=== PATIENT | female | born 1960 | race Caucasian/White ===

== ENCOUNTER 2017-02-11 10:04 | Inpatient (IN) | payer OTHER ==
[2017-02-11 10:23] VITALS: BMI 27.6
--- NOTE | 2017-02-11 12:42 | HP ---
COWS - Scale Resting Pulse: 1= [place] 81-100 Sweatin=Flushed/Facial Moisture Restless Observation: 3= Extraneous Movement Pupil Size: 2= Moderately Dilated Bone or Joint Aches: 2= Severe Diffuse Aches Runny Nose/ Eye Tearin= Runny Nose/Eyes GI Upset > 30mins: 3= Vomiting/Diarrhea Tremor Observation: 2= Slight Tremor Visible Yawning Observation: 2= >3x During Session Anxiety or Irritability: 2=Irritable/Anxious Goose Flesh Skin: 0=Smooth Skin COWS Score: 21 CIWA Score - CIWA Score Nausea/Vomitin Muscle Tremors: 3 Anxiety: 3 Agitation: 3 Paroxysmal Sweats: 2 Orientation: 0-Oriented Tacttile Disturbances: 2-Mild Itch/Numbness/Burn Auditory Disturbances: 2-Mild Harshness/Frighten Visual Disturbances: 2-Mild Sensitivity Headache: 2-Mild CIWA-Ar Total Score: 22 Admission ROS BHS - HPI Chief Complaint: I NEED HELP TO STOP USING HEROIN,ALCOHOL,COCAINE,MARIJUANA Allergies/Adverse Reactions: Allergies Allergy/AdvReac Type Severity Reaction Status Date / Time Penicillins Allergy Severe Hives Verified 02/11/17 12:14 History of Present Illness: THIS 56 YEARS OLD FEMALE WITH HEROIN,ALCOHOL DEPENDENCE,XANAX,COCAINE MARIJUANA DEPENDENCE,WITHDRAWAL SYMPTOM, LAST DETOX CORNER STONE 2016 FELL 1 MONTH AGO DEPRESSION,PTSD HEPATITIS C SEIZURE LAST 6 MONTHS HYPERCHOLESTEROLEMIA SCOLIOSIS HISTORY OF DISLOCATION OF LEFT ANKLE LONGEST PERIOD OF SOBRIETY 11 YEARS Exam Limitations: No Limitations - Ebola screening Have you traveled outside of the country in the last 21 days: No Have you had contact with anyone from an Ebola affected area: No Have you been sick,other than usual withdrawal symptoms: No Do you have a fever: No - Review of Systems Constitutional: Diaphoresis, Loss of Appetite, Malaise, Night Sweats, Changes in sleep, Unexplained wgt Loss EENT: reports: Tearing, Nose Congestion Respiratory: reports: No Symptoms reported Cardiac: reports: Palpitations GI: reports: Abdominal Distended, Diarrhea, Nausea, Poor Appetite, Abdominal cramping : reports: No Symptoms Reported Musculoskeletal: reports: Back Pain, Joint Pain, Muscle Pain, Joint Stiffness Integumentary: reports: Dryness Neuro: reports: Headache, Tremors Endocrine: reports: No Symptoms Reported Hematology: reports: No Symptoms Reported Psychiatric: reports: No Sypmtoms Reported, Judgement Intact, Mood/Affect Appropiate, other (DEPRESSION,PTSD) Patient History - Patient Medical History Hx Anemia: No Hx Asthma: No Hx Chronic Obstructive Pulmonary Disease (COPD): No Hx Cancer: No Hx Cardiac Disorders: No Hx Hypertension: No Hx Hypercholesterolemia: No Hx Pacemaker: No HX Cerebrovascular Accident: No Hx Seizures: Yes (drug related seizures last 6 months ago.) Hx Dementia: No Hx Diabetes: No Hx Gastrointestinal Disorders: No Hx Liver Disease: No Hx Genitourinary Disorders: No Hx Sexually Transmitted Disorders: No Hx Renal Disease (ESRD): No Hx Thyroid Disease: No Hx Human Immunodeficiency Virus (HIV): No (LAST 2016 NEGATIVE) Hx Hepatitis C: Yes ([employer]) Hx Depression: Yes Hx Suicide Attempt: Yes (tried to overdose in 2014) Hx Bipolar Disorder: No Hx Schizophrenia: No Other Medical History: NO SUICIDAL,NO HOMICIDAL - Patient Surgical History Past Surgical History: Yes Hx Section: Yes (x2) Other Surgical History: removal of benign R ovarian cyst 1988 - PPD History Previous Implant?: Yes Documented Results: Negative w/o proof Implanted On Prior R Admission?: No PPD to be Administered?: Yes - Reproductive History Patient is a Female of Child Bearing Age (11 -55 yrs old): Yes Patient : No - Smoking Cessation Smoking history: Current every day smoker Have you smoked in the past 12 months: Yes Aproximately how many cigarettes per day: 5 Hx Chewing Tobacco Use: No Initiated information on smoking cessation: Yes 'Breaking Loose' booklet given: 02/11/17 - Substance & Tx. History Hx Alcohol Use: Yes Hx Substance Use: Yes Substance Use Type: Alcohol, Cocaine, Heroin, Marijuana Hx Substance Use Treatment: Yes ([facility] 2015) - Substances Abused Heroin Route: Inhalation Frequency: Daily Amount used: 4-5 bags Age of first use: 31 Date of Last Use: 02/09/17 Alcohol Route: Oral Frequency: Daily Amount used: 1 pint vodka Age of first use: 16 Date of Last Use: 02/10/17 Cocaine Route: Inhalation Frequency: 1-3 times last 30 days Amount used: less than a gram Age of first use: 20 Date of Last Use: 02/10/17 Marijuana/Hashish Route: Smoking Frequency: Daily Amount used: $5 Age of first use: 16 Date of Last Use: 02/10/17 Family Disease History - Family Disease History Family Disease History: Other: Father (ALCOHOL,), Mother (ALCOHOL) Admission Physical Exam [facility] - Vital Signs Vital Signs: Vital Signs - 24 hr 02/11/17 10:19 Temperature 96.8 F L Pulse Rate 91 H Respiratory 18 Rate Blood Pressure 130/89 - Physical General Appearance: Yes: Moderate Distress, Tremorous, Irritable, Sweating, Anxious HEENTM: Yes: Normal ENT Inspection, SOLITARIO, Pharynx Normal Respiratory: Yes: Lungs Clear, Normal Breath Sounds, No Respiratory Distress Neck: Yes: Within Normal Limits, Supple, Trachea in good position Breast: Yes: Breast Exam Deferred Cardiology: Yes: Within Normal Limits, Regular Rhythm, Regular Rate, S1, S2 Abdominal: Yes: Within Normal Limits, Normal Bowel Sounds, Flat, Soft, Surgical Scar Genitourinary: Yes: Within Normal Limits Back: Yes: Muscle Spasm Musculoskeletal: Yes: full range of Motion, Back pain, Joint Stiffness, Muscle Pain Extremities: Yes: Within Normal Limits, Normal Inspection, Normal Range of Motion, Tremors Neurological: Yes: search engine optimization manager II-XII NML intact, Fully Oriented, Alert, Motor Strength 5/5 Integumentary: Yes: Dry Lymphatic: Yes: Within Normal Limits - Diagnostic (1) Opioid dependence with withdrawal Current Visit: Yes Status: Acute (2) Alcohol dependence with uncomplicated withdrawal Current Visit: Yes Status: Acute (3) Uncomplicated sedative, hypnotic or anxiolytic withdrawal Current Visit: Yes Status: Acute (4) Cocaine dependence Current Visit: Yes Status: Acute (5) Cannabis dependence Current Visit: Yes Status: Acute (6) Nicotine dependence Current Visit: Yes Status: Acute (7) Scoliosis Current Visit: Yes Status: Acute (8) Hypercholesterolemia Current Visit: Yes Status: Acute (9) Ovarian cyst Current Visit: Yes Status: Acute (10) Dislocation of left ankle joint Current Visit: Yes Status: Acute (11) Depression Current Visit: Yes Status: Acute (12) PTSD (post-traumatic stress disorder) Current Visit: Yes Status: Acute Cleared for Admission [facility] - Detox or Rehab [facility] Level of Care: Medically Managed Detox Regimen/Protocol: Methadone/Valium [facility] Breath Alcohol Content Breath Alcohol Content: 0 Urine Pregancy Test - Result Urine Test Results: Negative- NO Line Present Urine Drug Screen - Results Drug Screen Negative: No Urine Drug Screen Results: THC-Marijuana, JULIO-Cocaine, OPI-Opiates, BAR- Barbiturates, BZO-Benzodiazepines, MTD-Methadone, TCA-Tricyclic Antidepress, OXY -Oxycodone
[2017-02-11] MEDS ORDERED: METHADONE HCL 10 MG TABLET (FOR DETOX USE ONLY) PO ONE ×2 (12:59→23:00)
[2017-02-11] MEDS ORDERED: MAGNESIUM HYDROX 2400MG/30ML ORAL SUSPENSION 30 ML CUP PO PRN (13:01)
[2017-02-11] MEDS ORDERED: MENTHOL/PHENOL 1 EACH UD MM PRN (13:01)
[2017-02-11] MEDS ORDERED: LOPERAMIDE HCL 2 MG CAPSULE PO PRN (13:01)
[2017-02-11] MEDS ORDERED: P-EPHED 60MG/TRIPROLIDI 2.5MG TABLET PO PRN (13:01)
[2017-02-11] MEDS ORDERED: hydrOXYzine PAMOATE 25 MG CAPSULE (FP) PO PRN (13:01)
[2017-02-11] MEDS ORDERED: MAGNESIUM CITRATE 300 ML BOTTLE PO PRN (13:01)
[2017-02-11] MEDS ORDERED: guaiFENesin/D-METHORPHAN HB 10 ML UNIT-DOSE CUPS PO PRN (13:01)
[2017-02-11] MEDS ORDERED: ACETAMINOPHEN 325 MG TABLET (FP) PO PRN (13:01)
[2017-02-11] MEDS ORDERED: MAG HYDROX/AL HYDROX/SIMETH 30 ML UNIT-DOSE CUP PO PRN (13:01)
[2017-02-11] MEDS ORDERED: diazePAM 5 MG TABLET PO ONE (13:05)
[2017-02-11] MEDS: diazePAM 5 MG TABLET PO SCH ×2 (15:13→22:37)
[2017-02-11] MEDS: CYCLOBENZAPRINE HCL 10 MG TABLET (FP) PO PRN ×2 (15:18→22:37)
[2017-02-11] MEDS: IBUPROFEN 400 MG TABLET (FP) PO PRN (15:21)
[2017-02-11 20:32] LABS: URINE APPEARANCE CLEAR; URINE BILIRUBIN NEGATIVE (NEGATIVE); URINE BLOOD NEGATIVE (NEGATIVE); URINE COLOR LTYELLOW; URINE GLUCOSE (UA) NEGATIVE (NEGATIVE); URINE KETONE NEGATIVE (NEGATIVE); URINE NITRITE NEGATIVE (NEGATIVE); URINE PROTEIN NEGATIVE (NEGATIVE); URINE UROBILINOGEN NEGATIVE E.U./dl (0.2-1.0)
[2017-02-11 20:36] LABS: URINE LEUK ESTERASE 3+ (NEGATIVE)
[2017-02-11 20:45] LABS: URINE MUCUS RARE; URINE RBC 2 /hpf (0-3); URINE WBC 16 /hpf (3-5)
[2017-02-11] MEDS: THIAMINE HCL 100 MG TABLET (FP) PO SCH (22:37)
[2017-02-11] MEDS: cloNIDine HCL 0.1 MG TABLET PO SCH (22:37)
[2017-02-11] MEDS: diphenhydrAMINE HCL 50 MG CAPSULE PO PRN (22:39)
[2017-02-12] MEDS: diazePAM 5 MG TABLET PO PRN ×2 (02:46→17:06)
[2017-02-12] MEDS: CYCLOBENZAPRINE HCL 10 MG TABLET (FP) PO PRN ×3 (02:47→22:32)
[2017-02-12] MEDS: IBUPROFEN 400 MG TABLET (FP) PO PRN ×2 (02:47→12:20)
[2017-02-12] MEDS: diazePAM 5 MG TABLET PO SCH ×3 (05:58→22:32)
[2017-02-12 09:44] LABS: MCH 26.7 pg (25.7-33.7); MCHC 32.6 g/dl (32.0-36.0); MEAN CELL VOLUME 81.9 fl (80-96); MEAN PLT VOLUME 8.7 fl (7.5-11.1); PLATELET COUNT 265 K/MM3 (134-434); WHITE BLOOD COUNT 7.1 K/mm3 (4.0-10.0)
[2017-02-12] MEDS ORDERED: METHADONE HCL 10 MG TABLET (FOR DETOX USE ONLY) PO SCH (10:00)
[2017-02-12] MEDS ORDERED: COLLOIDAL OATMEAL 1 BAR EACH TP PRN (10:27)
--- NOTE | 2017-02-12 10:32 | PN ---
[facility] CIWA - CIWA Score Nausea/Vomitin-No Nausea/No Vomiting Muscle Tremors: 3 Anxiety: 3 Agitation: 3 Paroxysmal Sweats: 3 Orientation: 0-Oriented Tacttile Disturbances: 0-None Auditory Disturbances: 0-None Visual Disturbances: 0-None Headache: 1-Very Mild CIWA-Ar Total Score: 13 BHS COWS - Scale Resting Pulse: 1= [place] 81-100 Sweatin=Flushed/Facial Moisture Restless Observation: 1= Difficult to Sit Still Pupil Size: 0= Normal to Room Light Bone or Joint Aches: 2= Severe Diffuse Aches Runny Nose/ Eye Tearin= Nasal Congestion GI Upset > 30mins: 1= Stomach Cramp Tremor Observation of Outstretched Hands: 2= Slight Tremor Visible Yawning Observation: 2= >3x During Session Anxiety or Irritability: 2=Irritable/Anxious Goose Flesh Skin: 3=Piloerection COWS Score: 17 S Progress Note (SOAP) Subjective: dry skin sweats agitation anxiety body aches interrupted sleep Objective: 02/12/17 10:31 Vital Signs Temperature 97.2 F L 02/12/17 06:00 Pulse Rate 89 02/12/17 06:00 Respiratory Rate 16 02/12/17 06:00 Blood Pressure 96/72 02/12/17 06:00 O2 Sat by Pulse Oximetry (%) Laboratory Tests 02/11/17 02/12/17 13:00 06:00 WBC 7.1 RBC 4.20 Hgb 11.2 Hct 34.4 MCV 81.9 MCHC 32.6 RDW 20.0 H Plt Count 265 MPV 8.7 Urine Color Ltyellow Urine Appearance Clear Urine pH 6.0 Ur Specific [place] 1.018 Urine Protein Negative Urine Glucose (UA) Negative Urine Ketones Negative Urine Blood Negative Urine Nitrite Negative Urine Bilirubin Negative Urine Urobilinogen Negative Ur Leukocyte Esterase 3+ H Urine RBC 2 Urine WBC 16 Ur Epithelial Cells Rare Urine Mucus Rare labs pending awake/alert ambulating no acute distress Assessment: 02/12/17 10:31 withdrawal sx Plan: continue detox increase fluids lac hydrin bid aveeno soap motrin 800mg tid
[2017-02-12] MEDS: cloNIDine HCL 0.1 MG TABLET PO SCH ×2 (10:40→22:31)
[2017-02-12] MEDS: PRENATAL VITAMINS W/ FOLIC ACID TABLET (FP) PO SCH (10:40)
[2017-02-12 11:07] LABS: ALBUMIN 3.4 g/dl (3.4-5.0); BILIRUBIN,TOTAL 0.2 mg/dL (0.2-1.0); CALCIUM 8.3 mg/dL (8.5-10.1); TOT PROT 6.5 g/dl (6.4-8.2)
--- NOTE | 2017-02-12 11:56 | EKG ---
Test Reason : Blood Pressure : / mmHG Vent. Rate : 098 BPM Atrial Rate : 098 BPM P-R Int : 162 ms QRS Dur : 078 ms QT Int : 384 ms P-R-T Axes : 074 068 055 degrees QTc Int : 490 ms NORMAL SINUS RHYTHM PROLONGED QT ABNORMAL ECG NO PREVIOUS ECGS AVAILABLE Confirmed by MARKIE OWRTHY MD ([id number]) on 02/12/2017 11:55:57 AM Referred By: Confirmed By:MARKIE WORTHY MD
[2017-02-12] MEDS: AMMONIUM LACTATE 12% LOTION 225 GM BOTTLE TP SCH ×2 (12:15→22:32)
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
[2017-02-12] MEDS: BACITRACIN 0.9 GM PACKET TP SCH ×2 (13:20→22:31)
[2017-02-12] MEDS: ZOLPIDEM TARTRATE 5 MG TABLET PO PRN (22:31)
[2017-02-12] MEDS: THIAMINE HCL 100 MG TABLET (FP) PO SCH (22:32)
[2017-02-13] MEDS: diazePAM 5 MG TABLET PO PRN ×2 (02:11→14:53)
[2017-02-13] MEDS: diphenhydrAMINE HCL 50 MG CAPSULE PO PRN (02:12)
[2017-02-13] MEDS: CYCLOBENZAPRINE HCL 10 MG TABLET (FP) PO PRN ×2 (05:51→21:21)
[2017-02-13] MEDS: IBUPROFEN 400 MG TABLET (FP) PO PRN ×2 (06:23→18:34)
[2017-02-13] MEDS: METHADONE HCL 5 MG TABLET (FOR DETOX USE ONLY) PO SCH (10:46)
[2017-02-13] MEDS: PRENATAL VITAMINS W/ FOLIC ACID TABLET (FP) PO SCH (10:46)
[2017-02-13] MEDS: cloNIDine HCL 0.1 MG TABLET PO SCH ×2 (10:46→21:17)
[2017-02-13] MEDS: BACITRACIN 0.9 GM PACKET TP SCH ×2 (10:47→21:18)
[2017-02-13] MEDS: diazePAM 5 MG TABLET PO SCH ×2 (10:47→23:27)
[2017-02-13] MEDS: AMMONIUM LACTATE 12% LOTION 225 GM BOTTLE TP SCH ×2 (10:48→23:26)
--- NOTE | 2017-02-13 13:36 | PN ---
[facility] CIWA - CIWA Score Nausea/Vomitin Muscle Tremors: 3 Anxiety: 3 Agitation: 2 Paroxysmal Sweats: 1-Minimal Palms Moist Orientation: 0-Oriented Tacttile Disturbances: 1-Very Mild Itch/Numbness Auditory Disturbances: 1-Very Mild Visual Disturbances: 1-Very Mild Sensitivity Headache: 2-Mild CIWA-Ar Total Score: 17 BHS COWS - Scale Resting Pulse: 1= [place] 81-100 Sweatin= Chills/Flushing Restless Observation: 3= Extraneous Movement Pupil Size: 1= Pupils >than Normal Bone or Joint Aches: 2= Severe Diffuse Aches Runny Nose/ Eye Tearin= Nasal Congestion GI Upset > 30mins: 3= Vomiting/Diarrhea Tremor Observation of Outstretched Hands: 2= Slight Tremor Visible Yawning Observation: 1= 1-2x During Session Anxiety or Irritability: 2=Irritable/Anxious Goose Flesh Skin: 0=Smooth Skin COWS Score: 17 S Progress Note (SOAP) Subjective: ALERT,IRRITABLE,ANXIOUS,INTERRUPTED SLEEP,TREMOR,PAIN IN THE BODY AND BACK Objective: 02/13/17 13:34 Vital Signs Temperature 96.9 F L 02/13/17 10:01 Pulse Rate 100 H 02/13/17 10:01 Respiratory Rate 16 02/13/17 10:01 Blood Pressure 118/72 02/13/17 10:01 O2 Sat by Pulse Oximetry (%) EKGEKG NSR PROLONG QT Laboratory Last Values WBC 7.1 K/mm3 (4.0-10.0) 02/12/17 06:00 RBC 4.20 M/mm3 (3.60-5.2) 02/12/17 06:00 Hgb 11.2 GM/dL (10.7-15.3) 02/12/17 06:00 Hct 34.4 % (32.4-45.2) 02/12/17 06:00 MCV 81.9 fl (80-96) 02/12/17 06:00 MCHC 32.6 g/dl (32.0-36.0) 02/12/17 06:00 RDW 20.0 % (11.6-15.6) H 02/12/17 06:00 Plt Count 265 K/MM3 (134-434) 02/12/17 06:00 MPV 8.7 fl (7.5-11.1) 02/12/17 06:00 Sodium 144 mmol/L (136-145) 02/12/17 06:00 Potassium 3.8 mmol/L (3.5-5.1) 02/12/17 06:00 Chloride 108 mmol/L (98-107) H 02/12/17 06:00 Carbon Dioxide 25 mmol/L (21-32) 02/12/17 06:00 Anion Gap 11 (8-16) 02/12/17 06:00 BUN 17 mg/dL (7-18) 02/12/17 06:00 Creatinine 1.0 mg/dL (0.55-1.02) 02/12/17 06:00 Creat Clearance w eGFR 57.78 (>60) 02/12/17 06:00 Random Glucose 114 mg/dL (74-106) H 02/12/17 06:00 Calcium 8.3 mg/dL (8.5-10.1) L 02/12/17 06:00 Total Bilirubin 0.2 mg/dL (0.2-1.0) 02/12/17 06:00 AST 41 U/L (15-37) H 02/12/17 06:00 ALT 101 U/L (12-78) H 02/12/17 06:00 Alkaline Phosphatase 180 U/L (45-117) H 02/12/17 06:00 Total Protein 6.5 g/dl (6.4-8.2) 02/12/17 06:00 Albumin 3.4 g/dl (3.4-5.0) 02/12/17 06:00 Urine Color Ltyellow 02/11/17 13:00 Urine Appearance Clear 02/11/17 13:00 Urine pH 6.0 (5.0-8.0) 02/11/17 13:00 Ur Specific [place] 1.018 (1.001-1.035) 02/11/17 13:00 Urine Protein Negative (NEGATIVE) 02/11/17 13:00 Urine Glucose (UA) Negative (NEGATIVE) 02/11/17 13:00 Urine Ketones Negative (NEGATIVE) 02/11/17 13:00 Urine Blood Negative (NEGATIVE) 02/11/17 13:00 Urine Nitrite Negative (NEGATIVE) 02/11/17 13:00 Urine Bilirubin Negative (NEGATIVE) 02/11/17 13:00 Urine Urobilinogen Negative E.U./dl (0.2-1.0) 02/11/17 13:00 Ur Leukocyte Esterase 3+ (NEGATIVE) H 02/11/17 13:00 Urine RBC 2 /hpf (0-3) 02/11/17 13:00 Urine WBC 16 /hpf (3-5) 02/11/17 13:00 Ur Epithelial Cells Rare /hpf (FEW) 02/11/17 13:00 Urine Mucus Rare 02/11/17 13:00 RPR Titer Nonreactive (NONREACTIVE) 02/12/17 06:00 Assessment: 02/13/17 13:35 WITHDRAWAL SYMPTOM Plan: CONTINUE DETOX,D/C TYLENOL,REPEAT UA
[2017-02-13] MEDS: THIAMINE HCL 100 MG TABLET (FP) PO SCH (21:17)
[2017-02-13 21:20] LABS: URINE APPEARANCE CLEAR; URINE BILIRUBIN NEGATIVE (NEGATIVE); URINE BLOOD NEGATIVE (NEGATIVE); URINE COLOR STRAW; URINE GLUCOSE (UA) NEGATIVE (NEGATIVE); URINE KETONE NEGATIVE (NEGATIVE); URINE NITRITE NEGATIVE (NEGATIVE); URINE PROTEIN NEGATIVE (NEGATIVE); URINE UROBILINOGEN NEGATIVE E.U./dl (0.2-1.0)
[2017-02-13] MEDS: ZOLPIDEM TARTRATE 5 MG TABLET PO PRN (21:21)
[2017-02-13 21:30] LABS: URINE LEUK ESTERASE 1+ (NEGATIVE)
[2017-02-13 21:31] LABS: URINE RBC 1 /hpf (0-3); URINE WBC 1 /hpf (3-5)
[2017-02-14] MEDS: diazePAM 5 MG TABLET PO PRN (04:40)
[2017-02-14] MEDS: BACITRACIN 0.9 GM PACKET TP SCH ×2 (10:54→22:37)
[2017-02-14] MEDS: diazePAM 5 MG TABLET PO SCH ×2 (10:54→22:38)
[2017-02-14] MEDS: METHADONE HCL 5 MG TABLET (FOR DETOX USE ONLY) PO SCH (10:54)
[2017-02-14] MEDS: AMMONIUM LACTATE 12% LOTION 225 GM BOTTLE TP SCH ×2 (10:54→22:39)
[2017-02-14] MEDS: cloNIDine HCL 0.1 MG TABLET PO SCH ×2 (10:54→22:37)
[2017-02-14] MEDS: PRENATAL VITAMINS W/ FOLIC ACID TABLET (FP) PO SCH (10:54)
[2017-02-14] MEDS: IBUPROFEN 400 MG TABLET (FP) PO PRN (10:58)
--- NOTE | 2017-02-14 13:12 | PN ---
S Progress Note (SOAP) Subjective: ALERT,IRRITABLE,ANXIOUS,INTERRUPTED SLEEP,PAIN IN TH BODY,ANXIOUS Objective: 02/14/17 13:12 Vital Signs Temperature 99.6 F 02/14/17 10:53 Pulse Rate 79 02/14/17 10:53 Respiratory Rate 16 02/14/17 10:53 Blood Pressure 116/69 02/14/17 10:53 O2 Sat by Pulse Oximetry (%) Assessment: 02/14/17 13:12 WITHDRAWAL SYMPTOM Plan: CONTINUE DETOX
[2017-02-14] MEDS ORDERED: diazePAM 5 MG TABLET PO ONE (13:38)
--- NOTE | 2017-02-14 13:41 | PN ---
S Progress Note Note: PATIENT HAS WITHDRAWAL SYMPTOM,TREMOR,ANXIOUS,VALIUM 10 MGS PO ORDERED, EXPLAINED NO MORE VALIUM AFTER THIS ON PRN, CONTINUE VALIUM DETOX
[2017-02-14] MEDS: CYCLOBENZAPRINE HCL 10 MG TABLET (FP) PO PRN ×2 (13:42→22:37)
[2017-02-14] MEDS: THIAMINE HCL 100 MG TABLET (FP) PO SCH (22:38)
[2017-02-14] MEDS: ZOLPIDEM TARTRATE 5 MG TABLET PO PRN (22:38)
[2017-02-15] MEDS ORDERED: METHADONE HCL 10 MG TABLET (FOR DETOX USE ONLY) PO SCH (10:00)
[2017-02-15] MEDS ORDERED: diazePAM 5 MG TABLET PO SCH (10:00)
[2017-02-15] MEDS: cloNIDine HCL 0.1 MG TABLET PO SCH ×2 (10:17→22:42)
[2017-02-15] MEDS: PRENATAL VITAMINS W/ FOLIC ACID TABLET (FP) PO SCH (10:18)
[2017-02-15] MEDS: BACITRACIN 0.9 GM PACKET TP SCH ×2 (10:18→22:42)
[2017-02-15] MEDS: AMMONIUM LACTATE 12% LOTION 225 GM BOTTLE TP SCH ×2 (10:19→22:43)
[2017-02-15] MEDS: CYCLOBENZAPRINE HCL 10 MG TABLET (FP) PO PRN ×2 (10:20→22:42)
[2017-02-15] MEDS: IBUPROFEN 400 MG TABLET (FP) PO PRN (10:21)
--- NOTE | 2017-02-15 10:44 | PN ---
BHS Progress Note (SOAP) Subjective: anxious sweats right hip pain Objective: 02/15/17 10:44 Vital Signs Temperature 97.7 F 02/15/17 06:00 Pulse Rate 84 02/15/17 06:00 Respiratory Rate 16 02/15/17 06:00 Blood Pressure 149/75 02/15/17 06:00 O2 Sat by Pulse Oximetry (%) awake/alert ambulating no acute distress black/blue bruising noted around eyes pt states it was a fall she experienced a month ago and now the black/blue noted periorbital area. pt states she had gone to ED and CT scan done and all negative. Assessment: 02/15/17 10:47 withdrawal sx Plan: continue detox increase fluids lidocaine patch d/c in am
[2017-02-15] MEDS: LIDOCAINE 5% TOPICAL PATCH TP SCH (12:11)
[2017-02-15] MEDS: THIAMINE HCL 100 MG TABLET (FP) PO SCH (22:43)
[2017-02-15] MEDS: diphenhydrAMINE HCL 50 MG CAPSULE PO PRN (22:44)
[2017-02-16] MEDS: CYCLOBENZAPRINE HCL 10 MG TABLET (FP) PO PRN (05:50)
[2017-02-16] MEDS: IBUPROFEN 400 MG TABLET (FP) PO PRN (05:50)
[2017-02-16] MEDS ORDERED: METHADONE HCL 5 MG TABLET (FOR DETOX USE ONLY) PO SCH (06:00)
--- NOTE | 2017-02-16 09:11 | DS ---
[facility] Detox Discharge Summary Admission Date: 02/11/17 Discharge Date: 02/16/17 - History Present History: Alcohol Dependence, Cannabis Dependence, Cocaine Dependence, Opioid Dependence, Sedative Dependence - Physical Exam Results Vital Signs: Vital Signs Temperature 98.5 F 02/16/17 06:33 Pulse Rate 75 02/16/17 06:33 Respiratory Rate 18 02/16/17 06:33 Blood Pressure 122/74 02/16/17 06:33 O2 Sat by Pulse Oximetry (%) - Treatment Hospital Course: Detox Protocol Followed, Detoxed Safely, Responded well, Discharged Condition Good - Medication Discharge Medications: Ambulatory Orders Fluoxetine HCl [Prozac -] 40 mg PO DAILY 02/11/17 Zolpidem Tartrate [Ambien] 10 mg PO HS 02/11/17 - Diagnosis (1) Alcohol dependence with uncomplicated withdrawal Current Visit: Yes Status: Chronic (2) Cannabis dependence Current Visit: Yes Status: Chronic (3) Cocaine dependence Current Visit: Yes Status: Acute Qualifiers: Substance use status: uncomplicated Qualified Code(s): F14.20 - Cocaine dependence, uncomplicated (4) Depression Current Visit: Yes Status: Chronic Qualifiers: Depression Type: unspecified Qualified Code(s): F32.9 - Major depressive disorder, single episode, unspecified (5) Nicotine dependence Current Visit: Yes Status: Chronic Qualifiers: Nicotine product type: cigarettes Substance use status: uncomplicated Qualified Code(s): F17.210 - Nicotine dependence, cigarettes, uncomplicated (6) Opioid dependence with withdrawal Current Visit: Yes Status: Chronic (7) Uncomplicated sedative, hypnotic or anxiolytic withdrawal Current Visit: Yes Status: Chronic (8) Hypercholesterolemia Current Visit: Yes Status: Chronic - AMA Did Patient Leave Against Medical Advice: No
[2017-02-16] MEDS: cloNIDine HCL 0.1 MG TABLET PO SCH (10:13)
[2017-02-16] MEDS: PRENATAL VITAMINS W/ FOLIC ACID TABLET (FP) PO SCH (10:13)
[2017-02-16] MEDS: BACITRACIN 0.9 GM PACKET TP SCH (10:14)
[2017-02-16] MEDS: AMMONIUM LACTATE 12% LOTION 225 GM BOTTLE TP SCH (10:15)
[2017-02-16] MEDS: LIDOCAINE 5% TOPICAL PATCH TP SCH (10:16)
[2017-02-16 10:55] VITALS: BP 112/65; PULSE 98; TEMP 97.2
== END 2017-02-16 12:39 | disposition other institution (70) | DRG 773 ==
LOC: YASAS 10:04 → Y6N 13:02
PROVIDERS: ADMIT Internal Medicine Addiction Medicine; ATTEND Internal Medicine Addiction Medicine
PROC: HZ2ZZZZ Detoxification Services for Substance Abuse Treatment (ICD-10-PCS; principal; 2017-02-16)
DX: F11.23 Opioid dependence with withdrawal (principal); F13.230 Sedative, hypnotic or anxiolytic dependence with withdrawal, uncomplicated; F10.230 Alcohol dependence with withdrawal, uncomplicated; F14.20 Cocaine dependence, uncomplicated; F12.20 Cannabis dependence, uncomplicated; F17.210 Nicotine dependence, cigarettes, uncomplicated; F32.9 Major depressive disorder, single episode, unspecified; F19.24 Other psychoactive substance dependence with psychoactive substance-induced mood disorder; F43.10 Post-traumatic stress disorder, unspecified; G47.00 Insomnia, unspecified; B17.2 Acute hepatitis E; E78.00 Pure hypercholesterolemia, unspecified
CPT/HCPCS: 36415; 80053; 81003; 81015; 85027; 86593; 93005; 93010

== ENCOUNTER 2017-02-16 13:08 | Inpatient (IN) | payer OTHER ==
[2017-02-16] MEDS ORDERED: NICOTINE POLACRILEX 2 MG GUM BUC PRN (13:22)
[2017-02-16] MEDS ORDERED: P-EPHED 60MG/TRIPROLIDI 2.5MG TABLET PO PRN (13:22)
[2017-02-16] MEDS ORDERED: diphenhydrAMINE HCL 50 MG CAPSULE PO PRN (13:22)
[2017-02-16] MEDS ORDERED: MENTHOL/PHENOL 1 EACH UD MM PRN (13:22)
[2017-02-16] MEDS ORDERED: MAGNESIUM CITRATE 300 ML BOTTLE PO PRN (13:22)
[2017-02-16] MEDS ORDERED: MAG HYDROX/AL HYDROX/SIMETH 30 ML UNIT-DOSE CUP PO PRN (13:22)
[2017-02-16] MEDS ORDERED: LOPERAMIDE HCL 2 MG CAPSULE PO PRN (13:22)
[2017-02-16] MEDS ORDERED: MAGNESIUM HYDROX 2400MG/30ML ORAL SUSPENSION 30 ML CUP PO PRN (13:22)
[2017-02-16] MEDS ORDERED: ACETAMINOPHEN 325 MG TABLET (FP) PO PRN (13:22)
[2017-02-16] MEDS ORDERED: guaiFENesin/D-METHORPHAN HB 10 ML UNIT-DOSE CUPS PO PRN (13:22)
--- NOTE | 2017-02-16 13:27 | HP ---
[facility] Assess/Revision - Admission History Admitted to Rehab from: [address] - Vital signs Vital Signs: Vital Signs (72 hours) 02/16/17 14:40 Temperature 97.8 F Pulse Rate 98 H Respiratory 16 Rate Blood Pressure 104/73 - Findings Detox History & Physical reviewed: Yes Concur with findings: Yes
[2017-02-16] MEDS: IBUPROFEN 400 MG TABLET (FP) PO PRN (19:08)
[2017-02-16] MEDS: CYCLOBENZAPRINE HCL 10 MG TABLET (FP) PO SCH (21:14)
[2017-02-16] MEDS: THIAMINE HCL 100 MG TABLET (FP) PO SCH (21:14)
[2017-02-16] MEDS ORDERED: traZODone HCL 100 MG TABLET (FP) PO SCH (22:00)
[2017-02-17] MEDS: PRENATAL VITAMINS W/ FOLIC ACID TABLET (FP) PO SCH (10:06)
[2017-02-17] MEDS: FLUoxetine HCL 20 MG CAPSULE (FP) PO SCH (10:07)
[2017-02-17] MEDS: CYCLOBENZAPRINE HCL 10 MG TABLET (FP) PO SCH ×2 (10:07→21:32)
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
[2017-02-17] MEDS: IBUPROFEN 400 MG TABLET (FP) PO PRN ×2 (12:29→21:33)
[2017-02-17] MEDS: GABAPENTIN 400 MG CAPSULE (FP) PO SCH ×2 (13:33→21:32)
[2017-02-17] MEDS: QUEtiapine FUMARATE 200 MG TABLET PO SCH (21:32)
[2017-02-17] MEDS: THIAMINE HCL 100 MG TABLET (FP) PO SCH (21:32)
[2017-02-17] MEDS: METHYL SALICYLATE/MENTHOL OINT 30 GM TUBE TP SCH (21:35)
[2017-02-18] MEDS: GABAPENTIN 400 MG CAPSULE (FP) PO SCH ×3 (06:41→21:29)
[2017-02-18] MEDS: IBUPROFEN 400 MG TABLET (FP) PO PRN ×2 (06:43→21:30)
[2017-02-18] MEDS ORDERED: PT OWN MED DRAWER 7, Y5N ONE (08:53)
[2017-02-18] MEDS: FLUoxetine HCL 20 MG CAPSULE (FP) PO SCH (10:32)
[2017-02-18] MEDS: CYCLOBENZAPRINE HCL 10 MG TABLET (FP) PO SCH ×2 (10:32→21:29)
[2017-02-18] MEDS: METHYL SALICYLATE/MENTHOL OINT 30 GM TUBE TP SCH ×2 (10:32→21:31)
[2017-02-18] MEDS: PRENATAL VITAMINS W/ FOLIC ACID TABLET (FP) PO SCH (10:32)
[2017-02-18] MEDS ORDERED: COLLOIDAL OATMEAL 1 BAR EACH TP PRN (14:35)
[2017-02-18] MEDS ORDERED: RANITIDINE HCL 150 MG TABLET (FP) PO ONE (14:36)
[2017-02-18] MEDS: QUEtiapine FUMARATE 200 MG TABLET PO SCH (21:29)
[2017-02-18] MEDS: THIAMINE HCL 100 MG TABLET (FP) PO SCH (21:29)
[2017-02-18] MEDS: RANITIDINE HCL 150 MG TABLET (FP) PO SCH (21:30)
[2017-02-19] MEDS: IBUPROFEN 400 MG TABLET (FP) PO PRN ×3 (06:57→21:29)
[2017-02-19] MEDS: GABAPENTIN 400 MG CAPSULE (FP) PO SCH ×3 (06:57→21:28)
[2017-02-19] MEDS ORDERED: PT OWN MED DRAWER 7, Y5N ONE (09:00)
[2017-02-19] MEDS: CYCLOBENZAPRINE HCL 10 MG TABLET (FP) PO SCH ×2 (10:23→21:28)
[2017-02-19] MEDS: FLUoxetine HCL 20 MG CAPSULE (FP) PO SCH (10:23)
[2017-02-19] MEDS: RANITIDINE HCL 150 MG TABLET (FP) PO SCH ×2 (10:23→21:29)
[2017-02-19] MEDS: PRENATAL VITAMINS W/ FOLIC ACID TABLET (FP) PO SCH (10:23)
[2017-02-19] MEDS: METHYL SALICYLATE/MENTHOL OINT 30 GM TUBE TP SCH ×2 (10:24→21:30)
[2017-02-19] MEDS: QUEtiapine FUMARATE 200 MG TABLET PO SCH (21:29)
[2017-02-19] MEDS: THIAMINE HCL 100 MG TABLET (FP) PO SCH (21:30)
[2017-02-20] MEDS: GABAPENTIN 400 MG CAPSULE (FP) PO SCH ×3 (06:38→21:17)
[2017-02-20] MEDS: IBUPROFEN 400 MG TABLET (FP) PO PRN ×2 (06:38→21:18)
[2017-02-20] MEDS ORDERED: cloNIDine HCL 0.1 MG TABLET PO ONE (07:55)
[2017-02-20] MEDS ORDERED: hydrOXYzine PAMOATE 50 MG CAPSULE (FP) PO PRN (07:56)
[2017-02-20] MEDS: RANITIDINE HCL 150 MG TABLET (FP) PO SCH ×2 (10:03→21:18)
[2017-02-20] MEDS: METHYL SALICYLATE/MENTHOL OINT 30 GM TUBE TP SCH ×2 (10:03→21:17)
[2017-02-20] MEDS: PRENATAL VITAMINS W/ FOLIC ACID TABLET (FP) PO SCH (10:03)
[2017-02-20] MEDS: FLUoxetine HCL 20 MG CAPSULE (FP) PO SCH (10:03)
[2017-02-20] MEDS: CYCLOBENZAPRINE HCL 10 MG TABLET (FP) PO SCH ×2 (10:03→21:17)
[2017-02-20] MEDS ORDERED: PT OWN MED DRAWER 7, Y5N ONE (20:20)
[2017-02-20] MEDS: THIAMINE HCL 100 MG TABLET (FP) PO SCH (21:18)
[2017-02-20] MEDS: QUEtiapine FUMARATE 200 MG TABLET PO SCH (21:18)
[2017-02-21] MEDS: IBUPROFEN 400 MG TABLET (FP) PO PRN ×2 (06:10→22:06)
[2017-02-21] MEDS: GABAPENTIN 400 MG CAPSULE (FP) PO SCH ×3 (06:10→21:19)
[2017-02-21] MEDS: METHYL SALICYLATE/MENTHOL OINT 30 GM TUBE TP SCH ×2 (10:05→22:08)
[2017-02-21] MEDS: RANITIDINE HCL 150 MG TABLET (FP) PO SCH ×2 (10:05→21:20)
[2017-02-21] MEDS: CYCLOBENZAPRINE HCL 10 MG TABLET (FP) PO SCH ×2 (10:05→21:19)
[2017-02-21] MEDS: PRENATAL VITAMINS W/ FOLIC ACID TABLET (FP) PO SCH (10:05)
[2017-02-21] MEDS: FLUoxetine HCL 20 MG CAPSULE (FP) PO SCH (10:06)
[2017-02-21] MEDS ORDERED: PT OWN MED DRAWER 7, Y5N ONE (19:47)
[2017-02-21] MEDS: QUEtiapine FUMARATE 200 MG TABLET PO SCH (21:19)
[2017-02-21] MEDS: THIAMINE HCL 100 MG TABLET (FP) PO SCH (21:19)
[2017-02-22] MEDS: GABAPENTIN 400 MG CAPSULE (FP) PO SCH (06:05)
[2017-02-22 07:08] VITALS: BP 131/88; PULSE 98; TEMP 97.1
[2017-02-22] MEDS ORDERED: PT OWN MED DRAWER 7, Y5N ONE ×2 (08:36→09:48)
[2017-02-22] MEDS: RANITIDINE HCL 150 MG TABLET (FP) PO SCH (09:26)
[2017-02-22] MEDS: FLUoxetine HCL 20 MG CAPSULE (FP) PO SCH (09:26)
[2017-02-22] MEDS: PRENATAL VITAMINS W/ FOLIC ACID TABLET (FP) PO SCH (09:26)
[2017-02-22] MEDS: CYCLOBENZAPRINE HCL 10 MG TABLET (FP) PO SCH (09:26)
[2017-02-22] MEDS: METHYL SALICYLATE/MENTHOL OINT 30 GM TUBE TP SCH (09:26)
== END 2017-02-22 10:24 | disposition left against medical advice (07) | DRG 770 ==
LOC: YASAS 13:08 → Y3E 13:09
PROVIDERS: ADMIT Psychiatry & Neurology Psychiatry; ATTEND Psychiatry & Neurology Psychiatry
PROC: HZ42ZZZ Group Counseling for Substance Abuse Treatment, Cognitive-Behavioral (ICD-10-PCS; principal; 2017-02-22)
DX: F11.20 Opioid dependence, uncomplicated (principal); F10.20 Alcohol dependence, uncomplicated; F12.20 Cannabis dependence, uncomplicated; F17.210 Nicotine dependence, cigarettes, uncomplicated; F33.9 Major depressive disorder, recurrent, unspecified; F43.10 Post-traumatic stress disorder, unspecified; E78.00 Pure hypercholesterolemia, unspecified; M41.9 Scoliosis, unspecified; N83.209 Unspecified ovarian cyst, unspecified side; S93.05XA Dislocation of left ankle joint, initial encounter; X58.XXXA Exposure to other specified factors, initial encounter; Y93.9 Activity, unspecified

== ENCOUNTER 2020-06-09 09:49 | Inpatient (IN) | payer OTHER ==
--- NOTE | 2020-06-09 10:46 | HP ---
COWS - Scale Resting Pulse: 1= [place] 81-100 Sweatin= Chills/Flushing Restless Observation: 1= Difficult to Sit Still Pupil Size: 1= Pupils >than Normal Bone or Joint Aches: 2= Severe Diffuse Aches Runny Nose/ Eye Tearin= Runny Nose/Eyes GI Upset > 30mins: 1= Stomach Cramp Tremor Observation: 2= Slight Tremor Visible Yawning Observation: 2= >3x During Session Anxiety or Irritability: 1=Feels Anxious/Irritable Goose Flesh Skin: 3=Piloerection COWS Score: 17 CIWA Score - Admission Criteria OASAS Guidelines: Admission for Medically Managed Detox: Requires at least one of the followin. CIWA greater than 12 2. Seizures within the past 24 hours 3. Delirium tremens within the past 24 hours 4. Hallucinations within the past 24 hours 5. Acute intervention needed for co occurring medical disorder 6. Acute intervention needed for co occurring psychiatric disorder 7. Severe withdrawal that cannot be handled at a lower level of care (continued vomiting, continued diarrhea, abnormal vital signs) requiring intravenous medication and/or fluids 8. Admitting History and Physical - Past Medical History ...LMP: 04/18/14 - Smoking History Smoking history: Current every day smoker Have you smoked in the past 12 months: Yes Aproximately how many cigarettes per day: 5 - Alcohol/Substance Use Hx Alcohol Use: Yes (reports started drinking heavy since 31 yo) Admission [facility] Chief Complaint: I want to get sober again and stay that way Allergies/Adverse Reactions: Allergies Allergy/AdvReac Type Severity Reaction Status Date / Time Penicillins Allergy Severe Hives Verified 06/09/20 11:34 prochlorperazine Allergy Hives Verified 06/09/20 11:36 [From Compazine] contrast dye Allergy Hives Uncoded 06/09/20 11:36 History of Present Illness: Patient is a 59 years-old woman who presents for detox from heroin. Patient was on suboxaone but reports she has stopped taking same. Her last prescription is as below. Patient is requesting detox from xanax which does not show in her urine. She understands she will only be treated for heroin withdrawal. She reports she was sober for many years until 2 years ago. Her last detox and rehab was in 2017 in this facility. Patient Name: Andreina Buchanan Date: 1960 Address: [address] [place] [id number]: Female Rx Written Rx Dispensed Drug Quantity Days Supply Prescriber Name 04/11/2020 05/03/2020 buprenorphine-naloxone 8-2 mg sl film 90 30 Jessica Brown Payment Method Insurance Dispens[facility] 05/01/2020 05/03/2020 lorazepam 2 mg tablet 90 30 Jaxson Benson NP Payment Method Insurance Disp[facility] 05/01/2020 05/03/2020 zolpidem tartrate 10 mg tablet 30 30 Jaxson Benson NP Payment Method Insurance Disp[facility] 04/04/2020 04/04/2020 lorazepam 2 mg tablet 90 30 Jaxson Benson NP Payment Method Insurance Dispens[facility] 04/04/2020 04/04/2020 zolpidem tartrate 10 mg tablet 30 30 Jaxson Benson NP Exam Limitations: No Limitations - Ebola screening Have you traveled outside of the country in the last 21 days: No Have you had contact with anyone from an Ebola affected area: No Have you been sick,other than usual withdrawal symptoms: No Do you have a fever: No - Review of Systems Constitutional: Chills, Loss of Appetite, Malaise, Changes in sleep, Weakness, Unintentional Wgt. Loss EENT: reports: Blurred Vision, Nose Congestion, Other (dentures) Respiratory: reports: No Symptoms reported Cardiac: reports: No Symptoms Reported GI: reports: Constipated, Nausea, Poor Appetite, Abdominal cramping : reports: No Symptoms Reported Musculoskeletal: reports: Back Pain, Joint Pain, Muscle Pain, Muscle Weakness Integumentary: reports: No Symptoms Reported Neuro: reports: Numbness, Tingling, Tremors, Weakness Endocrine: reports: No Symptoms Reported Hematology: reports: Anemia Psychiatric: reports: Anxious, Depressed Other Systems: Reviewed and Negative Patient History - Patient Medical History Hx Anemia: No Hx Asthma: No Hx Chronic Obstructive Pulmonary Disease (COPD): No Hx Cancer: No Hx Cardiac Disorders: No Hx Hypertension: No Hx Hypercholesterolemia: No Hx Pacemaker: No HX Cerebrovascular Accident: No Hx Seizures: Yes (6 years ago) Hx Dementia: No Hx Diabetes: No Hx Gastrointestinal Disorders: No Hx Liver Disease: No Hx Genitourinary Disorders: No Hx Sexually Transmitted Disorders: No Hx Renal Disease (ESRD): No Hx Thyroid Disease: No Hx Human Immunodeficiency Virus (HIV): No Hx Hepatitis C: Yes Hx Depression: Yes Hx Suicide Attempt: Yes (7 years ago) Hx Bipolar Disorder: No Hx Schizophrenia: No - Patient Surgical History Past Surgical History: Yes Hx Section: Yes (x 2) Other Surgical History: removal of benign R ovarian cyst 1990,1991,1993 Anesthesia Reaction: No - PPD History Previous Implant?: Yes Documented Results: Negative w/o proof Implanted On Prior [facility] Admission?: Yes Date: 02/13/17 Results: omm PPD to be Administered?: Yes - Reproductive History Patient is a Female of Child Bearing Age (11 -55 yrs old): No Last Menstrual Period: 04/18/14 - Smoking Cessation Smoking history: Current every day smoker Have you smoked in the past 12 months: Yes Aproximately how many cigarettes per day: 5 Hx Chewing Tobacco Use: No Initiated information on smoking cessation: Yes 'Breaking Loose' booklet given: 06/09/20 - Substances abused Heroin Substance route: Inhalation Frequency: Daily Amount used: 10 bags Age of first use: 31 Date of last use: 06/09/20 Admission Physical Exam S - Physical General Appearance: Yes: No Apparent Distress HEENTM: Yes: Hearing grossly Normal, Normocephalic, Normal Voice, SOLITARIO, Other (full set of upper and lower dentures) Respiratory: Yes: Chest Non-Tender, Lungs Clear, Normal Breath Sounds, No Respiratory Distress, No Accessory Muscle Use Neck: Yes: No masses,lesions,Nodules, Supple Breast: Yes: Breast Exam Deferred Cardiology: Yes: Regular Rhythm, Regular Rate, S1, S2 Abdominal: Yes: Normal Bowel Sounds, Non Tender, Soft Genitourinary: Yes: Hesitency Back: Yes: Other (mild scoliosis) Musculoskeletal: Yes: Back pain, Muscle Pain, Muscle weakness Extremities: Yes: Tremors, Other (unsteady gait r/t previous CVA) Neurological: Yes: Fully Oriented, Alert, Normal Mood/Affect, Normal Response, Numbness, Other (left leg weakness, walks with shuffling gait) Integumentary: Yes: Cold Lymphatic: Yes: Within Normal Limits - Diagnostic (1) Nicotine dependence Current Visit: Yes Status: Chronic Qualifiers: Nicotine product type: cigarettes Substance use status: uncomplicated Qualified Code(s): F17.210 - Nicotine dependence, cigarettes, uncomplicated (2) Opioid dependence with withdrawal Current Visit: Yes Status: Acute (3) Scoliosis Current Visit: Yes Status: Chronic Qualifiers: Scoliosis type: neuromuscular Spinal region: thoracic Qualified Code(s): M41.44 - Neuromuscular scoliosis, thoracic region (4) CVA, old, ataxia Current Visit: Yes Status: Chronic (5) Shuffling gait Current Visit: Yes Status: Chronic Cleared for Admission [facility] - Detox or Rehab [facility] Level of Care: Medically Managed Detox Regimen/Protocol: Methadone Claeared for Rehab Admission: No Inpatient Rehab Admission - Rehab Decision to Admit Inpatient rehab admission?: No
[2020-06-09] MEDS ORDERED: BISMUTH SUBSALICYLATE 524 MG/30 ML UD PO PRN (11:21)
[2020-06-09] MEDS ORDERED: ACETAMINOPHEN 325 MG TABLET (FP) PO PRN (11:21)
[2020-06-09] MEDS ORDERED: MENTHOL/PHENOL 1 EACH UD MM PRN (11:21)
[2020-06-09] MEDS ORDERED: cloNIDine HCL 0.1 MG TABLET PO PRN (11:21)
[2020-06-09] MEDS ORDERED: MAG HYDROX/AL HYDROX/SIMETH 30 ML UNIT-DOSE CUP PO PRN (11:21)
[2020-06-09] MEDS ORDERED: NALOXONE HCL 0.4 MG/ML VIAL IM PRN (11:21)
[2020-06-09] MEDS ORDERED: IBUPROFEN 400 MG TABLET (FP) PO PRN (11:21)
[2020-06-09] MEDS ORDERED: NICOTINE POLACRILEX 2 MG GUM BUC PRN (11:21)
[2020-06-09] MEDS ORDERED: MAGNESIUM HYDROX 2400MG/30ML ORAL SUSPENSION 30 ML CUP PO PRN (11:21)
[2020-06-09] MEDS ORDERED: MAGNESIUM CITRATE 300 ML BOTTLE PO PRN (11:21)
[2020-06-09] MEDS ORDERED: METHOCARBAMOL 500 MG TABLET PO PRN (11:21)
[2020-06-09 11:49] VITALS: BMI 19.7
[2020-06-09] MEDS ORDERED: METHADONE HCL 10 MG TABLET (FOR DETOX USE ONLY) PO ONE (12:15)
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
[2020-06-09] MEDS ORDERED: MELATONIN 5 MG TABLETS PO PRN (13:56)
[2020-06-09] MEDS: FLUoxetine HCL 20 MG CAPSULE PO SCH (16:42)
--- NOTE | 2020-06-09 17:16 | EKG ---
Test Reason : Blood Pressure : / mmHG Vent. Rate : 061 BPM Atrial Rate : 061 BPM P-R Int : 190 ms QRS Dur : 094 ms QT Int : 458 ms P-R-T Axes : 083 067 048 degrees QTc Int : 461 ms NORMAL SINUS RHYTHM NORMAL ECG WHEN COMPARED WITH ECG OF 11-FEB-2017 14:01, VENT. RATE HAS DECREASED BY 37 BPM Confirmed by MD Doris, Pasquale ([id number]) on 06/09/2020 5:15:51 PM Referred By: Confirmed By:Pasquale George MD
[2020-06-09] MEDS: ACETAMINOPHEN 325 MG TABLET (FP) PO PRN (18:42)
[2020-06-09] MEDS: THIAMINE HCL 100 MG TABLET (FP) PO SCH (21:38)
[2020-06-09] MEDS: QUEtiapine FUMARATE 100 MG TABLET (FP) PO SCH (21:40)
[2020-06-09] MEDS ORDERED: MELATONIN 5 MG TABLETS PO SCH (22:00)
[2020-06-10] MEDS ORDERED: METHADONE HCL 10 MG TABLET (FOR DETOX USE ONLY) ONE (09:56)
[2020-06-10] MEDS ORDERED: METHADONE HCL 5 MG TABLET (FOR DETOX USE ONLY) ONE (09:56)
[2020-06-10] MEDS ORDERED: METHADONE (DETOX) 20 MG, METHADONE (DETOX) 5 MG PO ONE (10:00)
[2020-06-10] MEDS: FLUoxetine HCL 20 MG CAPSULE PO SCH (11:29)
[2020-06-10] MEDS: PRENATAL VITAMINS W/ FOLIC ACID TABLET (FP) PO SCH (11:29)
[2020-06-10] MEDS: NICOTINE 7 MG/24 HOURS TOPICAL PATCH TD SCH (11:30)
--- NOTE | 2020-06-10 11:36 | PN ---
BHS COWS - Scale Resting Pulse: 0= [place] 80 or Below Sweatin= Chills/Flushing Restless Observation: 1= Difficult to Sit Still Pupil Size: 0= Normal to Room Light Bone or Joint Aches: 2= Severe Diffuse Aches Runny Nose/ Eye Tearin= Nasal Congestion GI Upset > 30mins: 0= None Tremor Observation of Outstretched Hands: 1= Tremor [place], Not Seen Yawning Observation: 0= None Anxiety or Irritability: 1=Feels Anxious/Irritable Goose Flesh Skin: 0=Smooth Skin COWS Score: 7 BHS Progress Note (SOAP) Subjective: sweats mild shakes interrupted sleep Objective: 06/10/20 11:36 Vital Signs Temperature 97.3 F L 06/10/20 08:52 Pulse Rate 73 06/10/20 08:52 Respiratory Rate 18 06/10/20 08:52 Blood Pressure 103/68 06/10/20 08:52 O2 Sat by Pulse Oximetry (%) 97 06/10/20 05:34 Laboratory Tests 06/09/20 14:15 COVID-19 (ANNALISE) Not detected rest of labs pending aaox3 ambulating no acute distress Assessment: 06/10/20 11:36 withdrawals Plan: continue detox pending labs ensure plus bid for lunch and dinner
[2020-06-10 11:50] LABS: HEMATOCRIT 32.4 % (32.4-45.2); HEMOGLOBIN 10.8 GM/dL (10.7-15.3); MCH 30.5 pg (25.7-33.7); MCHC 33.3 g/dl (32.0-36.0); MEAN CELL VOLUME 91.6 fl (80-96); MEAN PLT VOLUME 9.8 fl (7.5-11.1); PLATELET COUNT 182 K/MM3 (134-434); RBC 3.54 M/mm3 (3.60-5.2); RDW 15.1 % (11.6-15.6); WHITE BLOOD COUNT 3.4 K/mm3 (4.0-10.0)
[2020-06-10 11:59] LABS: ALBUMIN 2.9 g/dl (3.4-5.0); BILIRUBIN,TOTAL 0.9 mg/dL (0.2-1); CALCIUM 8.6 mg/dL (8.5-10.1); CREATININE 0.5 mg/dL (0.55-1.3); TOT PROT 5.2 g/dl (6.4-8.2)
[2020-06-10 12:04] LABS: POTASSIUM 2.9 mmol/L (3.5-5.1)
[2020-06-10] MEDS: POTASSIUM CHLORIDE ORAL LIQUID 20 MEQ/15 ML PO SCH ×3 (13:09→20:59)
[2020-06-10] MEDS: THIAMINE HCL 100 MG TABLET (FP) PO SCH (21:54)
[2020-06-10] MEDS: QUEtiapine FUMARATE 100 MG TABLET (FP) PO SCH (21:54)
[2020-06-11] MEDS ORDERED: TRIMETHOBENZAMIDE HCL 300 MG CAPSULE PO PRN (09:57)
--- NOTE | 2020-06-11 09:57 | PN ---
BHS COWS - Scale Resting Pulse: 0= [place] 80 or Below Sweatin= Chills/Flushing Restless Observation: 1= Difficult to Sit Still Pupil Size: 0= Normal to Room Light Bone or Joint Aches: 2= Severe Diffuse Aches Runny Nose/ Eye Tearin= None GI Upset > 30mins: 0= None Tremor Observation of Outstretched Hands: 1= Tremor [place], Not Seen Yawning Observation: 1= 1-2x During Session Anxiety or Irritability: 1=Feels Anxious/Irritable Goose Flesh Skin: 0=Smooth Skin COWS Score: 7 BHS Progress Note (SOAP) Subjective: body aches headache sweats nausea constipation Objective: 06/11/20 09:55 Vital Signs Temperature 97.3 F L 06/11/20 05:36 Pulse Rate 57 L 06/11/20 05:36 Respiratory Rate 18 06/11/20 05:36 Blood Pressure 117/57 L 06/11/20 05:36 O2 Sat by Pulse Oximetry (%) 97 06/11/20 05:36 Laboratory Tests 06/09/20 06/10/20 06/10/20 14:15 08:00 08:00 WBC RBC Hgb Hct MCV MCH MCHC RDW Plt Count MPV Sodium Potassium Chloride Carbon Dioxide Anion Gap BUN Creatinine Est GFR (CKD-EPI)AfAm Est GFR (CKD-EPI)NonAf Random Glucose Calcium Total Bilirubin AST ALT Alkaline Phosphatase Total Protein Albumin Syphilis Serology Non-reactive COVID-19 (ANNALISE) Not detected HIV Ag/Ab Combo Qual Negative 06/10/20 06/10/20 08:00 08:00 WBC 3.4 L RBC 3.54 L Hgb 10.8 Hct 32.4 MCV 91.6 MCH 30.5 D MCHC 33.3 RDW 15.1 D Plt Count 182 D MPV 9.8 D Sodium 144 Potassium 2.9 L* Chloride 113 H Carbon Dioxide 27 Anion Gap 4 L BUN 8.0 Creatinine 0.5 L Est GFR (CKD-EPI)AfAm 124.52 Est GFR (CKD-EPI)NonAf 107.44 Random Glucose 82 Calcium 8.6 Total Bilirubin 0.9 AST 17 ALT 24 Alkaline Phosphatase 46 Total Protein 5.2 L Albumin 2.9 L Syphilis Serology COVID-19 (ANNALISE) HIV Ag/Ab Combo Qual repeated CMP pending aaox3 ambulating no acute distress Assessment: 06/11/20 09:55 withdrawals Plan: continue detox pending repeated labs tylenol/motrin prn citroma prn tigan prn
[2020-06-11 09:59] LABS: BASO % 0.6 % (0-2.0); EOS % 6.6 % (0-4.5); HEMOGLOBIN 11.9 GM/dL (10.7-15.3); MCH 30.4 pg (25.7-33.7); MCHC 33.1 g/dl (32.0-36.0); MEAN CELL VOLUME 91.8 fl (80-96); MEAN PLT VOLUME 9.2 fl (7.5-11.1); MONO % 8.9 % (3.8-10.2); NEUT % 49.9 % (42.8-82.8); PLATELET COUNT 188 K/MM3 (134-434); RBC 3.92 M/mm3 (3.60-5.2); WHITE BLOOD COUNT 4.3 K/mm3 (4.0-10.0)
[2020-06-11] MEDS ORDERED: METHADONE HCL 10 MG TABLET (FOR DETOX USE ONLY) PO ONE (10:00)
[2020-06-11] MEDS: NICOTINE 7 MG/24 HOURS TOPICAL PATCH TD SCH (10:09)
[2020-06-11] MEDS: PRENATAL VITAMINS W/ FOLIC ACID TABLET (FP) PO SCH (10:09)
[2020-06-11] MEDS: FLUoxetine HCL 20 MG CAPSULE PO SCH (10:09)
[2020-06-11] MEDS: ACETAMINOPHEN 325 MG TABLET (FP) PO PRN ×2 (10:11→17:19)
[2020-06-11 15:41] LABS: ALBUMIN 3.1 g/dl (3.4-5.0); BILIRUBIN,TOTAL 0.6 mg/dL (0.2-1); BLOOD UREA NITROGEN 7.8 mg/dL (7-18); CREATININE 0.5 mg/dL (0.55-1.3); POTASSIUM 4.2 mmol/L (3.5-5.1); TOT PROT 5.6 g/dl (6.4-8.2)
[2020-06-11] MEDS: THIAMINE HCL 100 MG TABLET (FP) PO SCH (22:10)
[2020-06-11] MEDS: QUEtiapine FUMARATE 100 MG TABLET (FP) PO SCH (22:10)
[2020-06-12] MEDS ORDERED: METHADONE HCL 5 MG TABLET (FOR DETOX USE ONLY) ONE (09:00)
[2020-06-12] MEDS ORDERED: METHADONE HCL 10 MG TABLET (FOR DETOX USE ONLY) ONE (09:01)
[2020-06-12] MEDS ORDERED: METHADONE (DETOX) 10 MG, METHADONE (DETOX) 5 MG PO ONE (10:00)
[2020-06-12] MEDS: PRENATAL VITAMINS W/ FOLIC ACID TABLET (FP) PO SCH (10:23)
[2020-06-12] MEDS: FLUoxetine HCL 20 MG CAPSULE PO SCH (10:24)
[2020-06-12] MEDS: NICOTINE 7 MG/24 HOURS TOPICAL PATCH TD SCH (10:24)
--- NOTE | 2020-06-12 10:24 | PN ---
BHS COWS - Scale Resting Pulse: 0= [place] 80 or Below Sweatin= No chills or Flushing Restless Observation: 0= Sits Still Pupil Size: 0= Normal to Room Light Bone or Joint Aches: 2= Severe Diffuse Aches Runny Nose/ Eye Tearin= None GI Upset > 30mins: 0= None Tremor Observation of Outstretched Hands: 1= Tremor [place], Not Seen Yawning Observation: 0= None Anxiety or Irritability: 2=Irritable/Anxious Goose Flesh Skin: 0=Smooth Skin COWS Score: 5 BHS Progress Note (SOAP) Subjective: body aches sweats Objective: 06/12/20 10:23 Vital Signs Temperature 97.5 F L 06/12/20 08:52 Pulse Rate 76 06/12/20 08:52 Respiratory Rate 16 06/12/20 08:52 Blood Pressure 139/78 06/12/20 08:52 O2 Sat by Pulse Oximetry (%) 96 06/12/20 08:52 Laboratory Tests 06/09/20 06/10/20 06/10/20 14:15 08:00 08:00 WBC RBC Hgb Hct MCV MCH MCHC RDW Plt Count MPV Absolute Neuts (auto) Neutrophils % Lymphocytes % Monocytes % Eosinophils % Basophils % Nucleated RBC % Sodium Potassium Chloride Carbon Dioxide Anion Gap BUN Creatinine Est GFR (CKD-EPI)AfAm Est GFR (CKD-EPI)NonAf Random Glucose Calcium Total Bilirubin AST ALT Alkaline Phosphatase Total Protein Albumin Syphilis Serology Non-reactive COVID-19 (ANNALISE) Not detected HIV Ag/Ab Combo Qual Negative 06/10/20 06/10/20 06/11/20 08:00 08:00 08:00 WBC 3.4 L 4.3 RBC 3.54 L 3.92 Hgb 10.8 11.9 Hct 32.4 36.0 MCV 91.6 91.8 MCH 30.5 D 30.4 MCHC 33.3 33.1 RDW 15.1 D 15.0 Plt Count 182 D 188 MPV 9.8 D 9.2 Absolute Neuts (auto) 2.1 Neutrophils % 49.9 Lymphocytes % 34.0 Monocytes % 8.9 Eosinophils % 6.6 H Basophils % 0.6 Nucleated RBC % 0 Sodium 144 Potassium 2.9 L* Chloride 113 H Carbon Dioxide 27 Anion Gap 4 L BUN 8.0 Creatinine 0.5 L Est GFR (CKD-EPI)AfAm 124.52 Est GFR (CKD-EPI)NonAf 107.44 Random Glucose 82 Calcium 8.6 Total Bilirubin 0.9 AST 17 ALT 24 Alkaline Phosphatase 46 Total Protein 5.2 L Albumin 2.9 L Syphilis Serology COVID-19 (ANNALISE) HIV Ag/Ab Combo Qual 06/11/20 09:50 WBC RBC Hgb Hct MCV MCH MCHC RDW Plt Count MPV Absolute Neuts (auto) Neutrophils % Lymphocytes % Monocytes % Eosinophils % Basophils % Nucleated RBC % Sodium 140 Potassium 4.2 Chloride 107 Carbon Dioxide 29 Anion Gap 4 L BUN 7.8 Creatinine 0.5 L Est GFR (CKD-EPI)AfAm 124.52 Est GFR (CKD-EPI)NonAf 107.44 Random Glucose 81 Calcium 9.0 Total Bilirubin 0.6 AST 17 ALT 25 Alkaline Phosphatase 52 Total Protein 5.6 L Albumin 3.1 L Syphilis Serology COVID-19 (ANNALISE) HIV Ag/Ab Combo Qual repeated labs show tremendous improvement aaox3 ambulating no acute distress Assessment: 06/12/20 10:23 withdrawals Plan: increase fluids continue detox
[2020-06-12] MEDS: ACETAMINOPHEN 325 MG TABLET (FP) PO PRN (19:40)
[2020-06-12] MEDS: THIAMINE HCL 100 MG TABLET (FP) PO SCH (21:41)
[2020-06-12] MEDS: QUEtiapine FUMARATE 100 MG TABLET (FP) PO SCH (21:41)
[2020-06-13] MEDS: ACETAMINOPHEN 325 MG TABLET (FP) PO PRN ×2 (06:23→18:22)
[2020-06-13] MEDS ORDERED: METHADONE HCL 10 MG TABLET (FOR DETOX USE ONLY) PO ONE (10:00)
--- NOTE | 2020-06-13 11:12 | PN ---
BHS COWS - Scale Resting Pulse: 0= [place] 80 or Below Sweatin= Chills/Flushing Restless Observation: 1= Difficult to Sit Still Pupil Size: 0= Normal to Room Light Bone or Joint Aches: 1= Mild Discomfort Runny Nose/ Eye Tearin= None GI Upset > 30mins: 0= None Tremor Observation of Outstretched Hands: 1= Tremor [place], Not Seen Yawning Observation: 0= None Anxiety or Irritability: 1=Feels Anxious/Irritable Goose Flesh Skin: 0=Smooth Skin COWS Score: 5 BHS Progress Note (SOAP) Subjective: sweats little anxiety otherwise feeling better Objective: 06/13/20 11:11 Vital Signs Temperature 97.2 F L 06/13/20 09:05 Pulse Rate 70 06/13/20 09:05 Respiratory Rate 19 06/13/20 09:05 Blood Pressure 151/63 06/13/20 09:05 O2 Sat by Pulse Oximetry (%) 99 06/13/20 09:05 aaox3 ambulating no acute distress Assessment: 06/13/20 11:12 withdrawals Plan: continue detox d/c in am
[2020-06-13] MEDS: PRENATAL VITAMINS W/ FOLIC ACID TABLET (FP) PO SCH (11:13)
[2020-06-13] MEDS: FLUoxetine HCL 20 MG CAPSULE PO SCH (11:13)
[2020-06-13] MEDS: NICOTINE 7 MG/24 HOURS TOPICAL PATCH TD SCH (11:15)
[2020-06-13] MEDS: QUEtiapine FUMARATE 100 MG TABLET (FP) PO SCH (22:05)
[2020-06-13] MEDS: THIAMINE HCL 100 MG TABLET (FP) PO SCH (22:05)
[2020-06-14] MEDS ORDERED: METHADONE HCL 5 MG TABLET (FOR DETOX USE ONLY) PO ONE (06:00)
[2020-06-14] MEDS: ACETAMINOPHEN 325 MG TABLET (FP) PO PRN (06:03)
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
--- NOTE | 2020-06-14 08:18 | DS ---
[facility] Detox Discharge Summary Admission Date: 06/09/20 Discharge Date: 06/14/20 - History Present History: Alcohol Dependence, Cannabis Dependence, Cocaine Dependence, Opioid Dependence, Sedative Dependence - Physical Exam Results Vital Signs: Vital Signs Temperature 97.1 F L 06/14/20 05:38 Pulse Rate 57 L 06/14/20 05:38 Respiratory Rate 16 06/14/20 05:38 Blood Pressure 132/77 06/14/20 05:38 O2 Sat by Pulse Oximetry (%) 100 06/14/20 05:38 Pertinent Admission Physical Exam Findings: Vital Signs Temperature 97.1 F L 06/14/20 05:38 Pulse Rate 57 L 06/14/20 05:38 Respiratory Rate 16 06/14/20 05:38 Blood Pressure 132/77 06/14/20 05:38 O2 Sat by Pulse Oximetry (%) 100 06/14/20 05:38 Laboratory Tests 06/09/20 06/10/20 06/10/20 14:15 08:00 08:00 WBC RBC Hgb Hct MCV MCH MCHC RDW Plt Count MPV Absolute Neuts (auto) Neutrophils % Lymphocytes % Monocytes % Eosinophils % Basophils % Nucleated RBC % Sodium Potassium Chloride Carbon Dioxide Anion Gap BUN Creatinine Est GFR (CKD-EPI)AfAm Est GFR (CKD-EPI)NonAf Random Glucose Calcium Total Bilirubin AST ALT Alkaline Phosphatase Total Protein Albumin Syphilis Serology Non-reactive COVID-19 (ANNALISE) Not detected HIV Ag/Ab Combo Qual Negative 06/10/20 06/10/20 06/11/20 08:00 08:00 08:00 WBC 3.4 L 4.3 RBC 3.54 L 3.92 Hgb 10.8 11.9 Hct 32.4 36.0 MCV 91.6 91.8 MCH 30.5 D 30.4 MCHC 33.3 33.1 RDW 15.1 D 15.0 Plt Count 182 D 188 MPV 9.8 D 9.2 Absolute Neuts (auto) 2.1 Neutrophils % 49.9 Lymphocytes % 34.0 Monocytes % 8.9 Eosinophils % 6.6 H Basophils % 0.6 Nucleated RBC % 0 Sodium 144 Potassium 2.9 L* Chloride 113 H Carbon Dioxide 27 Anion Gap 4 L BUN 8.0 Creatinine 0.5 L Est GFR (CKD-EPI)AfAm 124.52 Est GFR (CKD-EPI)NonAf 107.44 Random Glucose 82 Calcium 8.6 Total Bilirubin 0.9 AST 17 ALT 24 Alkaline Phosphatase 46 Total Protein 5.2 L Albumin 2.9 L Syphilis Serology COVID-19 (ANNALISE) HIV Ag/Ab Combo Qual 06/11/20 09:50 WBC RBC Hgb Hct MCV MCH MCHC RDW Plt Count MPV Absolute Neuts (auto) Neutrophils % Lymphocytes % Monocytes % Eosinophils % Basophils % Nucleated RBC % Sodium 140 Potassium 4.2 Chloride 107 Carbon Dioxide 29 Anion Gap 4 L BUN 7.8 Creatinine 0.5 L Est GFR (CKD-EPI)AfAm 124.52 Est GFR (CKD-EPI)NonAf 107.44 Random Glucose 81 Calcium 9.0 Total Bilirubin 0.6 AST 17 ALT 25 Alkaline Phosphatase 52 Total Protein 5.6 L Albumin 3.1 L Syphilis Serology COVID-19 (ANNALISE) HIV Ag/Ab Combo Qual aaox3 ambulating no acute distress lungs CTA - Treatment Hospital Course: Detox Protocol Followed, Detoxed Safely, Responded well, Discharged Condition Good, Rehab Referral Accepted - Medication Discharge Medications: Ambulatory Orders Zolpidem Tartrate [Ambien] 10 mg PO HS 02/11/17 Quetiapine Fumarate [Seroquel] 200 mg PO HS 02/16/17 - Diagnosis (1) Opioid dependence with withdrawal Current Visit: Yes Status: Chronic (2) Substance induced mood disorder Current Visit: Yes Status: Acute (3) Substance-induced anxiety disorder Current Visit: Yes Status: Acute (4) Substance-induced sleep disorder Current Visit: Yes Status: Acute (5) CVA, old, ataxia Current Visit: Yes Status: Chronic (6) Dyslipidemia Current Visit: Yes Status: Chronic (7) Hepatitis C Current Visit: Yes Status: Chronic Qualifiers: Viral hepatitis chronicity: chronic Hepatic coma status: without hepatic coma Qualified Code(s): B18.2 - Chronic viral hepatitis C (8) MDD (major depressive disorder), recurrent episode, moderate Current Visit: Yes Status: Chronic (9) Nicotine dependence Current Visit: Yes Status: Chronic Qualifiers: Nicotine product type: cigarettes Substance use status: uncomplicated Qualified Code(s): F17.210 - Nicotine dependence, cigarettes, uncomplicated (10) Scoliosis Current Visit: Yes Status: Chronic Qualifiers: Scoliosis type: neuromuscular Spinal region: thoracic Qualified Code(s): M41.44 - Neuromuscular scoliosis, thoracic region (11) Shuffling gait Current Visit: Yes Status: Chronic (12) Insomnia Current Visit: No Status: Acute (13) Uncomplicated sedative, hypnotic or anxiolytic withdrawal Current Visit: Yes Status: Acute (14) Alcohol dependence with uncomplicated withdrawal Current Visit: Yes Status: Chronic (15) Cannabis dependence Current Visit: Yes Status: Chronic (16) Cocaine dependence Current Visit: Yes Status: Chronic Qualifiers: Substance use status: uncomplicated (17) Depression Current Visit: No Status: Chronic Qualifiers: Depression Type: unspecified Qualified Code(s): F32.9 - Major depressive disorder, single episode, unspecified (18) Depressive disorder Current Visit: No Status: Chronic (19) Opioid dependence Current Visit: Yes Status: Chronic Qualifiers: Substance use status: uncomplicated Qualified Code(s): F11.20 - Opioid dependence, uncomplicated (20) PTSD (post-traumatic stress disorder) Current Visit: No Status: Chronic (21) Substance induced mood disorder Current Visit: No Status: Chronic (22) Ovarian cyst Current Visit: No Status: Resolved - AMA Did Patient Leave Against Medical Advice: No
[2020-06-14 09:19] VITALS: BP 117/75; PULSE 79; TEMP 96.8
== END 2020-06-14 09:29 | disposition home or self-care (01) | DRG 773 ==
LOC: YASAS 09:49 → Y6N 12:00
PROVIDERS: ADMIT Allergy & Immunology; ATTEND Allergy & Immunology
PROC: HZ2ZZZZ Detoxification Services for Substance Abuse Treatment (ICD-10-PCS; principal; 2020-06-09)
DX: F11.23 Opioid dependence with withdrawal (principal); F10.230 Alcohol dependence with withdrawal, uncomplicated; F13.230 Sedative, hypnotic or anxiolytic dependence with withdrawal, uncomplicated; F14.20 Cocaine dependence, uncomplicated; F12.20 Cannabis dependence, uncomplicated; F17.210 Nicotine dependence, cigarettes, uncomplicated; F33.1 Major depressive disorder, recurrent, moderate; F19.24 Other psychoactive substance dependence with psychoactive substance-induced mood disorder; F19.280 Other psychoactive substance dependence with psychoactive substance-induced anxiety disorder; F19.282 Other psychoactive substance dependence with psychoactive substance-induced sleep disorder; F43.10 Post-traumatic stress disorder, unspecified; B18.2 Chronic viral hepatitis C; I69.393 Ataxia following cerebral infarction; E78.5 Hyperlipidemia, unspecified; M41.44 Neuromuscular scoliosis, thoracic region; G47.00 Insomnia, unspecified; R26.89 Other abnormalities of gait and mobility; T23.092A Burn of unspecified degree of multiple sites of left wrist and hand, initial encounter; T31.0 Burns involving less than 10% of body surface; X11.8XXA Contact with other hot tap-water, initial encounter; Y93.89 Activity, other specified; Y92.238 Other place in hospital as the place of occurrence of the external cause; Z86.69 Personal history of other diseases of the nervous system and sense organs; Z88.0 Allergy status to penicillin; Z88.8 Allergy status to other drugs, medicaments and biological substances; Z91.041 Radiographic dye allergy status; Z91.5 Personal history of self-harm
CPT/HCPCS: 36415; 80053; 85025; 85027; 86780; 87389; 93005; 93010; U0003